=== PATIENT | female | born 1950 | race African-American/Black ===

== ENCOUNTER 2018-03-12 12:36 | Emergency (ER) | payer OTHER ==
[~2018-03-12] VITALS: Ht 170.2 cm; Wt 121.1 kg
[2018-03-12 13:00] VITALS: BP 136/57
[2018-03-12] MEDS ORDERED: TRAM50TA PO (13:09)
[2018-03-12] MEDS ORDERED: PENI500T PO (13:09)
--- NOTE | 2018-03-12 13:10 | PHYS DOC ---
Past Medical History Past Medical History: Anxiety, Diabetes-Type II, GERD, Hypertension Past Surgical History: Hysterectomy, Knee Replacement Additional Past Surgical Histo: hemmrhoidectomy, carpal tunnel R Alcohol Use: None Drug Use: None Adult General Chief Complaint Chief Complaint: DENTAL PROBLEM [facility] HPI Patient is a 67 year old female who presents with left lower back dental pain she is nauseated last week she's also had chronic and tissues. States that the pain started in the inside of her gumline and will radiate up into her left ear. She has only been taking Ibuprofen for the pain. Review of Systems Review of Systems Constitutional: Denies fever or chills [] Eyes: Denies change in visual acuity, redness, or eye pain [] HENT: dental pain. Denies nasal congestion or sore throat [] Respiratory: Denies cough or shortness of breath [] Cardiovascular: No additional information not addressed in HPI [] GI: Denies abdominal pain, nausea, vomiting, bloody stools or diarrhea [] : Denies dysuria or hematuria [] Musculoskeletal: Denies back pain or joint pain [] Integument: Denies rash or skin lesions [] Neurologic: Denies headache, focal weakness or sensory changes [] All other systems were reviewed and found to be within normal limits, except as documented in this note. Allergies Allergies Allergies Coded Allergies Type Severity Reaction Last Updated Verified codeine Adverse Reaction Intermediate vomiting 04/21/16 Yes Physical Exam Physical Exam Constitutional: Well developed, well nourished, no acute distress, non-toxic appearance. [] HENT: Normocephalic, atraumatic, bilateral external ears normal, oropharynx moist, no oral exudates, nose normal. Left lower Dental pain without swelling or having broken teeth. 2 small cyst under the tongue. [] Eyes: PERRLA, EOMI, conjunctiva normal, no discharge. [] Neck: Normal range of motion, no tenderness, supple, no stridor. [] Cardiovascular:Heart rate regular rhythm, no murmur [] Lungs & Thorax: Bilateral breath sounds clear to auscultation [] Abdomen: Bowel sounds normal, soft, no tenderness, no masses, no pulsatile masses. [] Skin: Warm, dry, no erythema, no rash. [] Back: No tenderness, no CVA tenderness. [] Extremities: No tenderness, no cyanosis, no clubbing, ROM intact, no edema. [] Neurologic: Alert and oriented X 3, normal motor function, normal sensory function, no focal deficits noted. [] Psychologic: Affect normal, judgement normal, mood normal. [] Current Patient Data Vital Signs Vital Signs Date Time Temp Pulse Resp B/P (MAP) Pulse Ox O2 Delivery O2 Flow Rate FiO2 03/12/18 13:00 98.2 79 18 136/57 (83) 96 Room Air 98.2 EKG EKG [] Radiology/Procedures Radiology/Procedures [] Course & Med Decision Making Course & Med Decision Making Patient is a 67 year old female who presents with left lower back dental pain she is nauseated last week she's also had chronic and tissues. States that the pain started in the inside of her gumline and will radiate up into her left ear. She has only been taking Ibuprofen for the pain. Alert and oriented. Skin is pink warm and dry. Mucus membrane are moist. Lungs are clear to auscultation. Will begin patient's workup there is no gumline redness or swelling or swelling of her face. Patient does have left back molars that have fillings in them. The patient lifts up her tongue there are 2 small round cysts. Patient states that they aren't painful but now she is wondering if maybe that is causing her pain. They are not painful for me to touch. The cysts the same color as her mucous membranes with black spots on it. Afebrile. Patient is told to see her dentist in follow-up with the ENT. She is given an antibiotic and pain medication. Staff Physician Addendum: I was working in the ER during the course of this patient's visit. I was available for consultation as needed, but I was not directly involved in the care of this patient. Dragon Disclaimer Dragon Disclaimer This electronic medical record was generated, in whole or in part, using a voice recognition dictation system. Departure Departure Impression: Primary Impression: Pain, dental Additional Impression: Oral cyst Disposition: 01 HOME, SELF-CARE Condition: STABLE Referrals: DEANNA BASHIR MD (PCP) NICO BAE MD Patient Instructions: Dental Pain Additional Instructions: CALL ENT TO GET A APPOINTMENT SOON POSSIBLE. Scripts Tramadol Hcl (TRAMADOL HCL) 50 Mg Tablet 50 MG PO Q6HRS PRN for PAIN, #20 TAB Prov: MICHELLE PAIGE APRN 03/12/18 Penicillin V Potassium (PENICILLIN V POTASSIUM) 500 Mg Tablet 1 TAB PO QID, #40 TAB Prov: MICHELLE PAIGE APRN 03/12/18 Problem Qualifiers MICHELLE PAIGE APRN Mar 12, 2018 13:10 HANG CRABTREE MD Mar 12, 2018 18:01
== END 2018-03-12 13:27 | disposition home or self-care (01) ==
LOC: ER 12:36
DX: K09.9 Cyst of oral region, unspecified (principal); K08.89 Other specified disorders of teeth and supporting structures; I10 Essential (primary) hypertension; K21.9 Gastro-esophageal reflux disease without esophagitis; E11.9 Type 2 diabetes mellitus without complications; Z88.5 Allergy status to narcotic agent
CPT/HCPCS: 99283

== ENCOUNTER 2018-03-21 21:10 | Emergency (ER) | payer OTHER ==
[~2018-03-21] VITALS: Ht 170.2 cm; Wt 121.1 kg
[~2018-03-21 21:10] MED LIST: PENI500T PO; TRAM50TA PO
[2018-03-21 21:12] VITALS: BP 196/89
[2018-03-21] MEDS ORDERED: TRAM50TA PO (22:15)
--- NOTE | 2018-03-21 22:17 | PHYS DOC ---
Past Medical History Past Medical History: Anxiety, Diabetes-Type II, GERD, Hypertension Past Surgical History: Hysterectomy, Knee Replacement Additional Past Surgical Histo: hemmrhoidectomy, carpal tunnel R Alcohol Use: None Drug Use: None Adult General Chief Complaint Chief Complaint: DENTAL PROBLEM HPI HPI Patient is a 67 year old AA female who presents to the emergency department with complaints of lower left dental pain that persists after being seen here on March 12, 2018. Patient states she has been taking the antibiotics as prescribed she took her last tramadol earlier today. Patient states that the pain is provoked by hot or cold fluids and it radiates to her right ear. She denies any fever, nausea, vomiting, difficulty swallowing, or shortness of breath. Patient states she is unable to schedule an appointment with her dentist because they informed her that she needs to take antibiotics before being treated. Currently she rates her pain a 10 out of 10 on the pain scale she is not taking anything besides tramadol for the pain. Her blood pressure is elevated on arrival, patient states she is supposed to take her evening dose of metoprolol but has not done that yet. Review of Systems Review of Systems Constitutional: Denies fever or chills [] HENT: Denies nasal congestion or sore throat ; see history of present illness[] Respiratory: Denies cough or shortness of breath [] Integument: Denies rash or skin lesions [] Neurologic: Denies headache, focal weakness or sensory changes [] Allergies Allergies Allergies Coded Allergies Type Severity Reaction Last Updated Verified codeine Adverse Reaction Intermediate vomiting 04/21/16 Yes Physical Exam Physical Exam Constitutional: Well developed, well nourished, no acute distress, non-toxic appearance, obese. [] HENT: Normocephalic, atraumatic, bilateral external ears normal, bilateral TMs are normal, oropharynx moist, no oral exudates, nose normal; no gingival erythema or edema noted in lower left quadrant, dental decay present of tooth # 20.. [] Eyes: conjunctiva normal, no discharge. [] Neck: Normal range of motion, no tenderness, no lymphadenopathy, no stridor. [] Skin: Warm, dry, no erythema, no rash. [] Neurologic: Alert and oriented X 3, normal motor function, normal sensory function, no focal deficits noted. [] Psychologic: Affect normal, judgement normal, mood normal. [] Current Patient Data Vital Signs Vital Signs Date Time Temp Pulse Resp B/P (MAP) Pulse Ox O2 Delivery O2 Flow Rate FiO2 03/21/18 21:12 98.3 77 18 196/89 (124) 95 Room Air 98.3 EKG EKG [] Radiology/Procedures Radiology/Procedures [] Course & Med Decision Making Course & Med Decision Making Pertinent Labs and Imaging studies reviewed. (See chart for details) [] Dragon Disclaimer Dragon Disclaimer This electronic medical record was generated, in whole or in part, using a voice recognition dictation system. Departure Departure Impression: Primary Impression: Pain, dental Additional Impression: Hypertension Disposition: HOME, SELF-CARE Condition: STABLE Referrals: DEANNA BASHIR MD (PCP) Patient Instructions: Dental Pain, [id number] Additional Instructions: TAKE YOUR BLOOD PRESSURE MEDICATION UPON ARRIVAL HOME Fill prescriptions and use as directed. Follow up with dentist using the referral list provided. Return to the ER if symptoms worsen. Scripts Tramadol Hcl (TRAMADOL HCL) 50 Mg Tablet 50 MG PO Q6HRS PRN for PAIN for 3 Days, #12 TAB 0 Refills Prov: RENEA LUNA APRN 03/21/18 Problem Qualifiers RENEA LUNA CERTIFIED [employer]IVE [employer] Mar 21, 2018 22:17
== END 2018-03-21 22:20 | disposition home or self-care (01) ==
LOC: ER 21:10
DX: K08.89 Other specified disorders of teeth and supporting structures (principal); I10 Essential (primary) hypertension; K02.9 Dental caries, unspecified; E11.9 Type 2 diabetes mellitus without complications; K21.9 Gastro-esophageal reflux disease without esophagitis; Z88.5 Allergy status to narcotic agent
CPT/HCPCS: 99283

== ENCOUNTER 2018-11-15 13:01 | Emergency (ER) | payer OTHER ==
[~2018-11-15] VITALS: Ht 170.2 cm; Wt 121.1 kg
[2018-11-15 13:05] VITALS: BP 183/80
[2018-11-15] MEDS ORDERED: TRIA15CR TP (14:35)
--- NOTE | 2018-11-15 14:37 | PHYS DOC ---
Past Medical History Past Medical History: Anxiety, Diabetes-Type II, GERD, Hypertension Past Surgical History: Hysterectomy, Knee Replacement Additional Past Surgical Histo: hemmrhoidectomy, carpal tunnel R Alcohol Use: None Drug Use: None Adult General Chief Complaint Chief Complaint: SKIN PROBLEM HPI HPI Patient is a 68 year old [female] who presents with [rash to arms, lower back, legs �3 days. Patient reports she has had some sores on her arms, her has similar, reports has been very itchy. States she had taken some Benadryl, has tried face creams, and continues to his machine does report she does feel some improvement when she takes Benadryl. Patient does state that it gets worse at night] Review of Systems Review of Systems Constitutional: Denies fever or chills [] Eyes: Denies change in visual acuity, redness, or eye pain [] HENT: Denies nasal congestion or sore throat [] Respiratory: Denies cough or shortness of breath [] Cardiovascular: No additional information not addressed in HPI [] GI: Denies abdominal pain, nausea, vomiting, bloody stools or diarrhea [] : Denies dysuria or hematuria [] Musculoskeletal: Denies back pain or joint pain [] Integument: Report rash to arms, lower back. [] Neurologic: Denies headache, focal weakness or sensory changes [] Endocrine: Denies polyuria or polydipsia [] All other systems were reviewed and found to be within normal limits, except as documented in this note. Allergies Allergies Allergies Coded Allergies Type Severity Reaction Last Updated Verified simvastatin Allergy Intermediate 11/15/18 Yes codeine Adverse Reaction Intermediate vomiting 04/21/16 Yes Physical Exam Physical Exam Constitutional: Well developed, well nourished, no acute distress, non-toxic appearance. [] HENT: Normocephalic, atraumatic, bilateral external ears normal, oropharynx moist, no oral exudates, nose normal. [] Eyes: PERRLA, EOMI, conjunctiva normal, no discharge. [] Neck: Normal range of motion, no tenderness, supple, no stridor. [] Cardiovascular:Heart rate regular rhythm, no murmur [] Lungs & Thorax: Bilateral breath sounds clear to auscultation [] Abdomen: Bowel sounds normal, soft, no tenderness, no masses, no pulsatile masses. [] Skin: Warm, dry, no erythema, several 2mm diameter, clustered, erythematous lesions noted to arms, legs, lower back. No purulence, no pustules. [] Back: No tenderness, no CVA tenderness. [] Extremities: No tenderness, no cyanosis, no clubbing, ROM intact, no edema. [] Neurologic: Alert and oriented X 3, normal motor function, normal sensory function, no focal deficits noted. [] Psychologic: Affect normal, judgement normal, mood normal. [] Current Patient Data Vital Signs Vital Signs Date Time Temp Pulse Resp B/P (MAP) Pulse Ox O2 Delivery O2 Flow Rate FiO2 11/15/18 13:05 98.2 75 16 183/80 (114) 99 Room Air 98.2 EKG EKG [] Radiology/Procedures Radiology/Procedures [] Course & Med Decision Making Course & Med Decision Making Pertinent Labs and Imaging studies reviewed. (See chart for details) [] Dragon Disclaimer Dragon Disclaimer This electronic medical record was generated, in whole or in part, using a voice recognition dictation system. Departure Departure Impression: Primary Impression: Bedbug bite Disposition: 01 HOME, SELF-CARE Condition: GOOD Referrals: DEANNA BASHIR MD (PCP) Patient Instructions: Bedbugs, [id number] Additional Instructions: As we discussed you can continue to use benadryl for your itching. Apply the cream 2 times a day to the itchy areas. Try to avoid scratching them. Follow up with your primary care provider Scripts Triamcinolone Acetonide (TRIAMCINOLONE ACETONIDE 0.5% CREAM) 15 Gm Cream..g. 1 PASHA TP BID, #30 GM Prov: CHAPITO VELAZQUEZ APRN 11/15/18 Problem Qualifiers Primary Impression: Bedbug bite Encounter type: initial encounter Qualified Codes: W57.XXXA - Bitten or stung by nonvenomous insect and other nonvenomous arthropods, initial encounter CHAPITO VELAZQUEZ APRN Nov 15, 2018 14:37
== END 2018-11-15 14:40 | disposition home or self-care (01) ==
LOC: ER 13:01
DX: S41.152A Open bite of left upper arm, initial encounter (principal); S41.151A Open bite of right upper arm, initial encounter; S81.852A Open bite, left lower leg, initial encounter; S81.851A Open bite, right lower leg, initial encounter; M54.5 Low back pain; K21.9 Gastro-esophageal reflux disease without esophagitis; E11.9 Type 2 diabetes mellitus without complications; I10 Essential (primary) hypertension; Z90.710 Acquired absence of both cervix and uterus; Z88.5 Allergy status to narcotic agent; Z88.8 Allergy status to other drugs, medicaments and biological substances; W57.XXXA Bitten or stung by nonvenomous insect and other nonvenomous arthropods, initial encounter; Y93.89 Activity, other specified; Y92.89 Other specified places as the place of occurrence of the external cause; Y99.8 Other external cause status
CPT/HCPCS: 99283